=== PATIENT | male | born 1995 | race African-American/Black ===

== ENCOUNTER 2017-07-30 09:39 | Emergency (ER) | payer MEDICAID ==
[~2017-07-30] VITALS: Ht 170.2 cm; Wt 59.0 kg
[2017-07-30 09:56] VITALS: BP 145/89
[2017-07-30] MEDS ORDERED: HYDROcodone-ACET 10/325MG TAB ONE (12:06)
[2017-07-30] MEDS ORDERED: BACITRACIN TOP OINT 1 UD PKG TOP ONE (12:06)
[2017-07-30] MEDS ORDERED: HYDROcodone-ACET 10/325MG TAB PO ONE (12:15)
[2017-07-30] MEDS ORDERED: BACITRACIN-POLYMYXIN B TOPICAL OINT UD TOP ONE (12:15)
== END 2017-07-30 13:50 | disposition home or self-care (01) ==
LOC: ER 09:39
DX: S30.810A Abrasion of lower back and pelvis, initial encounter (principal); M79.605 Pain in left leg; F12.10 Cannabis abuse, uncomplicated; R51 Headache; Y08.89XA Assault by other specified means, initial encounter; Y93.89 Activity, other specified; Y92.89 Other specified places as the place of occurrence of the external cause; Y99.8 Other external cause status
CPT/HCPCS: 70450; 73562; 73590